=== PATIENT | male | born 1955 | race Caucasian/White ===

== ENCOUNTER 2019-01-06 03:38 | Observation (INO) | payer MEDICARE ==
[~2019-01-06] VITALS: Ht 175.3 cm; Wt 123.2 kg
--- NOTE | ~2019-01-06 | HEMODYNAMI ---
PATIENT:MONISHA FLOWERS MEDICAL RECORD: [id number] : 59 [address] [id number] ADMISSION DATE: 01/06/19 Generatedon:01/06/201913:47 Patient name: MONISHA FLOWERS Patient #: [id number] SSN: : 1955 Date of study: 01/06/2019 Page: Of Hemodynamic Procedure Report Patient Data Patient Demographics Procedure consent was obtained First Name: MONISHA Gender: Male Last Name: LIONEL : 1955 Patient #: [id number] Age: 63 year(s) Race: Unknown Additional ID: [id number] Contact details Address: [address] State: [place] City: [place] Zip code: [address] Past Medical History Allergies: No known allergies Admission Admission Data Admission Date: 01/06/2019 Admission Time: 5:10 Room #: 2122 Weight (lbs.): 271.17 Weight (kg.): 123 Lab Results Lab Result Date: 01/06/2019 Lab Result Time: 5:30 Biochemistry Name Units Result Min Max BUN mg/dl 24 --(----)-* 7 18 Creatinine mg/dl 1.1 --(--*-)-- 0.6 1.3 CBC Name Units Result Min Max Hematocrit % 41.2 -*(----)-- 42 54 Hemoglobin g/dl 13.5 --(*---)-- 13.5 17.5 Procedure Procedure Types Cath Procedure Diagnostic Procedure LHC LHC w/Coronaries Procedure Description Procedure Date Procedure Date: 01/06/2019 Procedure Start Time: 13:34 Procedure End Time: 13:46 Procedure Staff Name Function Be Marquez MD Performing Physician Rene Ghotra RT Monitor José Lowry RN Nurse Bijal Seymour RT Scrub Procedure Data Cath Procedure Fluoroscopy Diagnostic fluoroscopy Total fluoroscopy Time: 2.6 time: 2.6 min min Diagnostic fluoroscopy Total fluoroscopy dose: 665 dose: 665 mGy mGy Contrast Material Contrast Material Type Amount (ml) Isovue 300 62 Entry Location Entry Primary Successful Side Size Upsize Upsize Entry Closure Slater ccessful Closure Location (Fr) 1 (Fr) 2 (Fr) Remarks Device Remarks Radial Right 6 Fr Manual artery Short Compression Estimated blood loss: 5 ml Diagnostic catheters Device Type Used For End Catheter Placement DIAGNOSTIC Priddy 110cm 5 Procedure Fr catheter ([id number]) Procedure Complications No complications Procedure Medications Medication Administration Route Dosage 0.9% NaCl I.V. 100 ml/hr Oxygen etCO2 Nasal cannula 2 l/min Heparin Flush Bag added to field 2 bags (1000units/500ml NS) Lidocaine 2% 20 Radial Cocktail added to field 1 syringe (Verapamil 2mg/Nitro 400mcg/Heparin 1500units) Versed I.V. 2 mg Fentanyl I.V. 100 mcg Radial Cocktail I.A. 1 syringe (Verapamil 2mg/Nitro 400mcg/Heparin 1500units) Hemodynamics Rest HGB: 13.5 (g/dl) Heart Rate: 65 (bpm) Pressure Samples Time Site Value (mmHg) Purpose Heart Use Rate(bpm) 13:41 LV 155/3,21 EDP 81 Gradients Valve Time Site Site Mean SEP/DFP Peak To Heart Use 1 2 (mmHg) (sec/min) Peak Rate (mmHg) (bpm) Aortic 13:42 LV AO 83 Snapshots Pre Cath Intra NCS Post Cath Vital Signs Time Heart Resp SPO2 etCO2 NIBP (mmHg) Rhythm Pain Sedation Rate (ipm) (%) (mmHg) Status Level (bpm) 13:25:01 66 13 100 33.6 156/81(126) NSR 0 (11) 10(A) , No pain 13:29:31 66 15 100 31.3 166/87(129) NSR 0 (11) 10(A) , No pain 13:33:55 65 13 100 34.3 151/88(111) NSR 0 (11) 10(A) , No pain 13:38:19 77 13 98 0 151/81(111) NSR 0 (11) 10(A) , No pain 13:42:48 84 13 97 32.1 145/82(125) NSR 0 (11) 10(A) , No pain Medications Time Medication Route Dose Verified Delivered Reason Notes Effectiveness by by 13:27:41 0.9% NaCl I.V. 100 José José Per ml/hr Alen Lowry physician RN RN 13:27:48 Oxygen etCO2 2 l/min José José for low 02 Nasal Lorigan Alen sats cannula RN RN 13:27:58 Heparin Flush added 2 bags José José used for Bag to Lorigan Lorigan procedure (1000units/500ml field RN RN NS) 13:28:07 Lidocaine 2% 20ml José José for local vial Lorigan Alen anesthetic RN RN 13:28:17 Radial Cocktail added 1 José José used for (Verapamil to syringe Lorigan Lorigan procedure 2mg/Nitro field RN RN 400mcg/Heparin 1500units) 13:32:40 Versed I.V. 2 mg José José for sedation Alen Lowry RN RN 13:32:49 Fentanyl I.V. 100 mcg José José for sedation Alen Lowry RN RN 13:36:45 Radial Cocktail I.A. 1 José Be for (Verapamil syringe Lorigan Alma vasodilation 2mg/Nitro RN 400mcg/Heparin 1500units) Procedure Log Time Note 12:59:59 Time tracking: Call back (After hours or weekends) 13:00:01 José Lowry RN sent for patient. Start room use. 13:00:08 Plan of Care:Hemodynamics will remain stable., Cardiac rhythm will remain stable., Comfort level will be maintained., Respiratory function will remain adequate., Patient/ family verbilizes understanding of procedure., Procedure tolerated without complication., Recovers from procedure without complications.. 13:17:40 Patient received from Med II to CCL 1 Alert and oriented. Tansferred to table in Supine position. 13:17:48 Warm blankets applied, and scooter hugger turned on for patient comfort. 13:17:49 Correct patient and procedure confirmed by team. 13:17:50 Signed procedure consent form obtained from patient. 13:17:51 ECG and BP/O2 sat monitors applied to patient. 13:23:38 Vital chart was started 13:26:28 Baseline sample Acquired. 13:26:30 Rhythm: sinus rhythm 13:26:31 Full Disclosure recording started 13:26:43 H&P Date Dictated: 01/06/2019 Within 30 days and on chart.. 13:26:44 Pre-procedure instructions explained to patient. 13:26:45 Pre-op teaching completed and patient verbalized understanding. 13:26:46 Family in patients room. 13:26:48 Patient NPO since Midnight. 13:26:53 Patient allergic to No known allergies 13:26:55 Is the patient allergic to Iodine/contrast media? No. 13:26:56 Is patient on blood thinner?Yes 13:26:58 ACC The patient was administered the following blood thiners within the last 24 hours: ACCPlavix 13:26:59 Patient diabetic? Yes. 13:27:00 If diabetic: On Metformin? No 13:27:03 Previous problem with sedation/anesthesia? No ? 13:27:03 Snore? Yes 13:27:04 Sleep apnea? Yes 13:27:05 Deviated septum? No 13:27:05 Opens mouth fully? Yes 13:27:06 Sticks out tongue? Yes 13:27:07 Airway obstruction? No ? 13:27:09 Dentures? No ? 13:27:11 Pre procedure: right dorsailis pedis pulse 2+ Normal; easily identifiable; not easily obliterated 13:27:12 Modified Greg's test Ulnar < 7 seconds 13:27:14 Patient pain scale 0/10 ?. 13:27:18 IV patent on arrival in right hand, left hand with 0.9% NaCl at [facility]. 13:27:20 Lab results completed and on chart. 13:27:22 Right Radial & Right Groin area was prepped with chlora-prep and draped in sterile fashion 13:27:23 Alarms reviewed by R. N. 13:27:23 Sharps counted by scrub and verified by R.N. 13:27:25 Use device set Radial Dx or PCI 13:27:26 ACIST Syringe (45902) opened to sterile field. 13:27:27 Medline Cath Pack ([id number]) opened to sterile field. 13:27:27 Bag Decanter () opened to sterile field. 13:27:28 ACIST Hand Control (94788) opened to sterile field. 13:27:28 ACIST Manifold (11455) opened to sterile field. 13:27:29 Tegaderm 4 x 4 (1626W) opened to sterile field. 13:27:29 MBrace Wrist Support ([id number]) opened to sterile field. 13:27:30 SHEATH 6FR Slender (17-6698) opened to sterile field. 13:27:31 DIAGNOSTIC WIRE .035 260cm J wire (666047) opened to sterile field. 13:27:36 Patient Weight : 271.17 lbs 13:27:41 0.9% NaCl 100 ml/hr I.V. was administered by José Lowry RN; Per physician; 13:27:48 Oxygen 2 l/min etCO2 Nasal cannula was administered by José Lowry RN; for low 02 sats; 13:27:58 Heparin Flush Bag (1000units/500ml NS) 2 bags added to field was administered by José Lowry RN; used for procedure; 13:28:07 Lidocaine 2% 20ml vial was administered by José Lowry RN; for local anesthetic; 13:28:17 Radial Cocktail (Verapamil 2mg/Nitro 400mcg/Heparin 1500units) 1 syringe added to field was administered by José Lowry RN; used for procedure; 13::30 Physician arrived 13::31 --------ALL STOP TIME OUT------ 13:31:31 Final Timeout: patient, procedure, and site verified with staff and physician. All members of the team are in agreement. 13:31:33 Right Radial & Right Groin site verified by team. 13:31:35 Maximum allowable Isovue 300 dose 300ml. Physician notified. (300ml for normal creatinines. For patients with creatinine of 1.7 or higher multiply weight(kg) x 5 divided by creatinine.) 13:31:39 Fire Safety Assessment: A--An alcohol-based skin anteseptic being used preoperatively., C--Open oxygen or nitrous oxide is being used., D--An ESU, laser, or fiber-optic light is being used. 13:31:41 Physical assessment completed. ASA score P 2 - A patient with mild systemic disease as per Be Marquez MD. 13:31:43 Sedation plan: IV Moderate Sedation Medication:Versed, Fentanyl 13:32:10 Lab Result : Creatinine 1.1 mg/dl 13:32:10 Lab Result : BUN 24 mg/dl 13:32:10 Lab Result : Hematocrit 41.2 % 13:32:10 Lab Result : Hemoglobin 13.5 g/dl 13:32:40 Versed 2 mg I.V. was administered by José Lowry RN; for sedation; 13:32:49 Fentanyl 100 mcg I.V. was administered by José Lowry RN; for sedation; 13:34:52 Procedure started. 13:34:55 Local anesthetic to right radial artery with Lidocaine 2% by Be Marquez MD.INITIAL ACCESS ONLY 13:35:02 A 6 Fr Short sheath was inserted into the Right Radial artery 13:36:39 Zero performed for pressure channel P1 13:36:45 Radial Cocktail (Verapamil 2mg/Nitro 400mcg/Heparin 1500units) 1 syringe I.A. was administered by Be Mraquez MD; for vasodilation; 13:36:56 A DIAGNOSTIC Priddy 110cm 5 Fr catheter ([id number]) was advanced over the wire and used for Procedure. 13:38:22 Zero performed for pressure channel P1 13:40:41 RCA angiography performed. 13:40:44 LCA angiography performed. 13:41:55 LV hemodynamics recorded. 13:41:56 LV gram done using RUIZ 13:41:59 Injector settings: Ml/sec: 5, Volume: 15, 13:42:11 EF : 55 % 13:42:16 Catheter removed. 13:42:21 TR BAND Large ([id number]) opened to sterile field. 13:42:27 Sheath removed intact; hemostasis achieved with Manual Compression to the Right Radial artery. 13:43:30 Procedure ended.(Physican Out) 13:45:32 Fluoroscopy time 02.60 minutes. 13:45:37 Fluoroscopy dose: 665 mGy 13:45:37 Flurop Dose total: 665 13:45:42 Contrast amount:Isovue 300 62ml. 13:45:44 Sharps counted by scrub and verified by R.N. 13:45:49 TR band inflated with 10cc of air. 13:45:50 Insertion/operative site no bleeding no hematoma. 13:45:59 Post right radial artery:stable, soft, clean and dry 13:46:00 Post Procedure Pulses reassessed and unchanged 13:46:02 Post-procedure physical assessment completed. ASA score P 2 - A patient with mild systemic disease as per Be Marquez MD. 13:46:04 Post procedure rhythm: unchanged. 13:46:06 Estimated blood loss: 5 ml 13:46:06 Post procedure instruction explained to patient.Patient verbalizes understanding. 13:46:07 Patient needs reinforcement of post procedure teaching. 13:46:25 Procedure and supply charges have been captured, reviewed, submitted and are correct. 13:46:27 Procedure Complication : No complications 13:46:28 Vital chart was stopped 13:46:29 See physician's report for complete and final results. 13:46:32 Report given to PCU. 13:46:35 Patient transfered to PCU with Stretcher. 13:46:36 Procedure ended. 13:46:36 Full Disclosure recording stopped 13:46:40 End room use (Document Last) Device Usage Item Name Manufacture Quantity Catalog Hospital Part Current Minimal Lot# / Number Charge Number Stock Stock Serial# Code ACIST Acist 1 97763 592667 257964 066621 20 Syringe Medical (93669) Systems Inc Medline Medline 1 [id number] 835529 02964 459569 5 Cath Pack ([id number]) Bag Microtek 1 726063 33192 202230 5 Decanter Medical Inc. () ACIST Hand Acist 1 75594 337145 472644 631181 5 Control Medical (94641) Systems Inc ACIST Acist 1 25049 637495 723949 146431 5 Manifold Medical (41833) Systems Inc Tegaderm 4 3M 1 1626W 904708 292002 813024 5 x 4 (1626W) MBrace Advanced 1 140-0250-00 089624 65398 334066 5 Wrist Vascular Support Dynamics ([id number]) SHEATH 6FR Terumo 1 [id number] 142959 835192 363192 5 Slender (80-1060) DIAGNOSTIC [place] 1 005896 460571 763222 121065 30 WIRE .035 260cm J wire (113083) DIAGNOSTIC Terumo 1 40-4980 179680 639581 867344 5 Priddy 110cm 5 Fr catheter (855933) TR BAND Terumo 1 [id number] 722783 535264 074190 40 Large ([id number]) Signature Audit [place] Stage Time Signature Unsigned Intra-Procedure 01/06/2019 Rene Ghotra 1:46:57 PM RT(R) Signatures Monitor : Rene Ghotra RT Signature : Date : Time : [place] [id number] [facility] [address]
--- NOTE | 2019-01-06 03:50 | NUR ---
PT HAS NITRO OINTMENT TO CHEST THAT WAS APPLIED BY ALISA BENJAMIN.
[2019-01-06] MEDS ORDERED: PENTOXIFYLLINE (04:20)
[2019-01-06] MEDS ORDERED: CELEBREX200 MG PO (04:20)
[2019-01-06 04:21] LABS: CREATINE KINASE 132 UL (21-232); THYROID STIMULATING HORMONE 1.51 uIU/mL (0.36-3.74); TROPONIN-I < 0.017 ng/mL (0.000-0.060)
[2019-01-06] MEDS ORDERED: GLIPIZIDE10 MG PO (04:21)
[2019-01-06] MEDS ORDERED: NEURONTIN800 MG PO (04:21)
[2019-01-06] MEDS ORDERED: ZESTRIL10 MG PO (04:21)
[2019-01-06] MEDS ORDERED: LASIX40 MG PO (04:22)
[2019-01-06] MEDS ORDERED: CRESTOR20 MG PO (04:22)
[2019-01-06] MEDS ORDERED: PIOGLITAZONE15 MG PO (04:22)
[2019-01-06] MEDS ORDERED: ZYRTEC10 MG PO (04:22)
[2019-01-06] MEDS ORDERED: OMEPRAZOLE20 M1 PO (04:23)
[2019-01-06] MEDS ORDERED: PLAVIX75 MG PO (04:23)
[2019-01-06] MEDS ORDERED: BACLOFEN10 MG PO (04:23)
[2019-01-06] MEDS ORDERED: KLOR-CON 1010 MEQ PO (04:23)
[2019-01-06] MEDS ORDERED: TYLENOL #4 W/CO1 TAB PO (04:24)
[2019-01-06 04:59] VITALS: BP 130/79
--- NOTE | 2019-01-06 05:44 | NUR ---
PT ARRIVED VIA W/C FROM ER. NO DISTRESS NOTED.
[2019-01-06 06:04] VITALS: BP 123/64; Ht 175.3 cm; Wt 123.2 kg
--- NOTE | 2019-01-06 06:25 | NUR ---
ADMISSION ASSESSMENT, HISTORY AND HOME MED LIST COMPLETED. SR PER CM HR 66. VSS. PT DENIES ANY DISCOMFORT. EXPLAINED RATIONALE FOR NPO UNTIL SEEN BY CARDIOLOGY. STATED UNDERSTANDING. CALL LIGHT WITHIN REACH.
[2019-01-06 10:05] LABS: BASOPHILS 0.2 % (0-2); EOSINOPHILS 3.2 % (0-7); HEMATOCRIT 41.2 % (42.0-54.0); HEMOGLOBIN 13.5 g/dL (13.5-17.5); IMMATURE GRANULOCYTES 0.1 % (0-5); LYMPHOCYTES 30.1 % (15-50); MCH 30.9 pg (26.0-34.0); MCHC 32.8 g/dL (31.0-37.0); MCV 94.3 fL (80.0-100.0); NEUTROPHILS 58.4 % (40-80); PLATELET COUNT 239 10x3/uL (130-400); RBC 4.37 10x6/uL (4.20-6.10); RDW 14.3 % (11.5-14.5); WBC 8.2 10x3/uL (4.8-10.8)
[2019-01-06 10:06] LABS: ANION GAP 15.1 mmol/L (8-16); CALCIUM 8.9 mg/dL (8.5-10.1); CARBON DIOXIDE 25.5 mmol/L (21.0-32.0); CREATININE - SERUM 1.1 mg/dL (0.6-1.3); POTASSIUM - SERUM 4.6 mmol/L (3.5-5.1)
[2019-01-06 11:53] VITALS: BP 139/68
--- NOTE | 2019-01-06 12:30 | NUR ---
ALERT AND ORIENTED X4. RESTING IN BED. CONSENTS FOR SURGICAL SPECIALIST SIGNED ON CHART. PREOP FOR SURGICAL SPECIALIST COMPLETE. TAKEN TO SURGICAL SPECIALIST VIA BED. CONTINUE PLAN OF CARE AND SAFETY PRECAUTIONS.
--- NOTE | 2019-01-06 14:01 | NUR ---
RETURN TO ROOM VIA BED FROM DECK ENGINEER. SEDATED. AROUSES TO VOICE. SPOUSE AT BEDSIDE. RT WRIST TR BAND CLEAN DRY INTACT. FREE FROM BLEEDING. FREE FROM HEMATOMA. BP-128/79, HR-66 SINUS RHYTHM, R-16, O2 SAT-96% RA. CONTINUE PLAN OF CARE AND SAFETY PRECAUTIONS.
[2019-01-06 15:42] VITALS: BP 138/70
--- NOTE | 2019-01-06 17:12 | NUR ---
1615-ALERT AND ORIENTED X4. BEGIN DEFLATING TR BAND BULB 2 ML OF AIR AT A TIME EVERY 20 MINUTES. CURRENTLY 6mL OF AIR DEFLATED. FREE FROM BLEEDING. FREE FROM HEMATOMA. AMBULATES TO RESTROOM. GAIT STEADY. SPOUSE AT BEDSIDE. DENIES ANY NEEDS AT THIS TIME. CONTINUE PLAN OF CARE AND SAFETY PRECAUTIONS.
--- NOTE | 2019-01-06 18:18 | NUR ---
ALERT AND ORIENTED X4. RESTING IN BED. TR BAND DEFLATED 8mL OF AIR. BEGINS BLEEDING. INFLATE TR BAND 1ML. TR BAND 7ML TOTAL DEFLATED REMAINS FREE FROM BLEEDING. CONTINUE PLAN OF CARE AND SAFETY PRECAUTIONS.
[2019-01-06 20:07] VITALS: BP 144/64
--- NOTE | 2019-01-06 20:12 | NUR ---
INITIAL ROUNDS COMPLETED AT 1910 HRS. PT DEIED ANY DISCOMFORT. TR BAND TO R WRIST CLEAN, DRY AND INTACT. 2CC REMOVED AT THAT TIME. ASSESSMENT COMPLETED AT 1930 HRS. VSS. SR PER CM HR 86. IV TO L WRIST AND R HAND DC'D WITH CATHETER INTACT. LUNGS CTA. MARTÍNEZ. STRONG PERIPHERAL PULSES. LAST CC OF TR BAND REMOVED. NO BLEEDING AFTER 15 MINUTES AND BAND REMOVED. 2X2 AND TEGADERM APPLIED. WRIST SPLINT REAPPLIED. INFORMED PT TO LEAVE SPLINT ON UNTIL AM. PT STATED UNDERSTANDING. RECHECK SITE AT 2014 CLEAN DRY AND INTACT. CALL LIGHT WITHIN REACH.
--- NOTE | 2019-01-06 20:42 | NUR ---
NO BLEEDING AT 2030 HRS. DC INSTRUCTIONS GIVEN AND EXPLAINED TO PT. TO POV VIA W/C.
--- NOTE | 2019-01-07 09:16 | MORECARE ---
CASE MANAGEMENT DISCHARGE SUMMARY PATIENT: MONISHA FLOWERS UNIT: [id number] ADM DATE: 01/06/19 AGE: 63 : [birth year] SEX: M ROOM/BED: D.2122 AUTHOR: MADHAV DRUMMOND PHYSICIAN: REFERRING PHYSICIAN: RAMON KOHLI MD DATE OF SERVICE: 01/07/19 Discharge Plan Patient Name: MONISHA FLOWERS Facility: [facility]:[place] : 1955 Planned Disposition: Home Anticipated Discharge Date: 01/06/19 Discharge Date: 01/06/2019 Expected LOS: 1 Initial Reviewer: [email or web address] Initial Review Date: 01/07/2019 Generated: 01/07/19 10:15 am Patient Name: MONISHA FLOWERS Page 80294 at 0916 All edits/amendments must be made on the electronic document DICTATION DATE: 01/07/19914 ENGLISH PROFESSOR: MAT 01/07/19914 RPT#: [id number] DC DATE:01/06/19 STATUS: DIS IN [facility] [address] [place] [address] END OF REPORT
--- NOTE | 2019-01-07 10:07 | CN ---
PATIENT NAME:MONISHA FLOWERS MEDICAL RECORD: [id number] : 59 LOCATION:. D.2122 ADMIT DATE: 01/06/19 ACCOUNT: [id number] CONSULTING PHYSICIAN: YUMI FINE MD REFERRING PHYSICIAN: RAMON KOHLI MD DATE OF CONSULTATION: 01/06/2019 HISTORY OF PRESENT ILLNESS: A 63-year-old gentleman with no known coronary artery disease, history of hypertension, hyperlipidemia, and diabetes mellitus with onset of chest tightness and pressure yesterday. It occurred while working in the yard, progressed to rest symptomology, wax and wane in course. Transferred from [place] for further evaluation. Strong family history of coronary artery disease and multiple risk factors. PAST MEDICAL HISTORY: Includes; 1. History of hypertension. 2. Hyperlipidemia. 3. Diabetes mellitus. ALLERGIES: None known. MEDICATIONS: Include Glucotrol 10 b.i.d., pioglitazone 30 mg p.o. daily, Lasix 20 daily, Neurontin 800 b.i.d., Celebrex 200 b.i.d., Crestor 20 daily, lisinopril 10 daily, and Plavix 75 daily. SOCIAL HISTORY: He is nonsmoker and nondrinker. He takes care of all his ADLs. No illicit drug use. REVIEW OF SYSTEMS: The patient reports easy bruising but reports no swollen glands. The patient reports no fever, no night sweats, no significant weight gain, no significant weight loss. No significant exercise tolerance. The patient reports no dry eyes, no irritation, no vision change. Patient reports no difficulty hearing and no ear pain. Patient reports no frequent nose bleeds or nose and sinus problems. Patient reports on arm pain on exertion. No shortness of breath while lying down. No history of heart murmur. Patient reports no cough, no wheezing or coughing up blood. Patient reports no abdominal pain, no vomiting. Normal appetite. No diarrhea and not vomiting blood. No nausea and no constipation. Patient reports no incontinence. No difficulty urinating. No hematuria. No increased frequency. Patient reports no muscle aches. No weakness, no arthralgias, no back pain. No swelling of the extremities. Patient reports no abnormal mole, no jaundice, no rashes. Reports no loss of consciousness. No weakness and no numbness. No seizures, dizziness, or headaches. The patient reports no depression, no sleep disturbance, feeling safe in a relationship and no alcohol abuse. Patient reports on fatigue. Reports no runny nose or sinus pressure. No itching, no hives, and no frequent sneezing. PHYSICAL EXAMINATION: GENERAL: Pleasant gentleman, in no acute distress. VITAL SIGNS: Dolph body weight. Blood pressure 123/64. Pulse 66 and regular. HEENT: Normocephalic and atraumatic. NECK: No bruits noted. HEART: Regular. LUNGS: [place] clear. ABDOMEN: Soft and nontender. CONSULT REPORT [id number] MONISHA FLOWERS EXTREMITIES: Pulses 2+ with no edema. DIAGNOSTIC DATA: ECG shows nonspecific ST-T changes. IMPRESSION: Unstable angina, acute coronary syndrome. PLAN: Diagnostic angiography, intervention based on above. TRANSINT:[id number] Voice Confirmation ID: [id number] DOCUMENT ID: [id number] YUMI FINE MD at 1007 CC: [id number] DICTATION DATE: 01/06/19854 STORE ADMINISTRATOR: 01/06/19 1616 DIS IN 01/06/19 [facility] [address] [place] [address]
--- NOTE | 2019-01-07 10:07 | EC ---
PATIENT:MONISHA FLOWERS DATE OF SERVICE: 01/06/19 SEX: M MEDICAL RECORD: [id number] DATE OF : 59 LOCATION:D.M2 D.212 AGE OF PATIENT: 63 ADMISSION DATE: 01/06/19 REFERRING PHYSICIAN: INTERPRETING PHYSICIAN: YUMI FINE MD ECHOCARDIOGRAM REPORT ECHO CHARGES 4 ECHO COMPLETE Date: 01/06/19 CLINICAL DIAGNOSIS: RECINOS/ ASSESS FOR CARDIOMYOPATHY ECHOCARDIOGRAPHIC MEASUREMENTS (adult normal given) AC root (d.<3.7cm) 4.0 cm LV Septum d (<1.2 cm> 1.1 cm Valve Excursion 1.9 cm LV Septum (systole) 1.4 cm Left Atria (s.<4.0cm> 4.0 cm LVPW d(<1.2cm) 1.5 cm RV (d.<2.3cm) 4.3 cm LVPW (sytole) 1.9 cm LV diastole(<5.6CM) 6.3 cm MV E-F(>70mm/sec) cm LV systole 4.9 cm LVOT Diameter 2.2 cm MV exc.(>10mm) 1.4 cm Est.ejection fraction (50-75%) % DOPPLER: LVIT cm/sec A 103 cm/sec E 72.0 cm/sec LA cm/sec RVSP 18 mmHg LVOT 128 cm/sec AOP1/2T m/s Asc. Ao 145 cm/sec RVOT 96 cm/sec RA cm/sec PA 121 cm/sec AV Gradient Peak 8.38 mmHg AV Mean 5.12 mmHg AV Area 2.9 cm MV Gradient Peak 6.54 mmHg MV Mean 3.09 mmHg MV Area cm COMMENTS: Folder Tier: Salvador PASCAL Egg Breaker: 3 Dr. Ahumada TAPE# PACS Pericardial Effusion N DATE OF SERVICE: 01/06/2019 Adequate 2-D, color-flow and spectral Doppler, and M-mode. LVH is present. LV internal dimensions are normal. Wall motion is normal. EF is greater than or equal to 55%. Aortic valve sclerosis without stenosis by Doppler interrogation. Left atrium is at upper limits of normal at 4.0 cm. Mitral valve shows no prolapse. Trace MR. Right-sided chambers are grossly normal. Trace TR. ECHOCARDIOGRAM REPORT [id number] MONISHA FLOWERS TRANSINT:[id number] Voice Confirmation ID: [id number] DOCUMENT ID: [id number] YUMI FINE MD at [facility] CC: [id number] DICTATION DATE: 01/06/19 1309 ROLLER PRINTING SUPERVISOR: 01/06/19 1843 DIS IN 01/06/19 [facility] [address] [place] [id number]
--- NOTE | 2019-01-07 10:07 | OP ---
PATIENT NAME: MOINSHA FLOWERS MEDICAL RECORD: [id number] :59 LOCATION:D.M2 D.2122 ADMISSION DATE:01/06/19 SURGEON: YUMI FINE MD DATE OF OPERATION: 01/06/2019 PROCEDURE: Left heart catheterization, selective coronary angiography, right radial approach. CATHETERS: [place] catheter, radial sheath. The procedure was well tolerated. The patient was returned to the heredia. Sheath was removed. TR band was placed. FINDINGS: Left ventriculography in 30-degree RUIZ view: Normal wall motion and normal systolic function. CORONARY ANATOMY: LEFT MAIN: Left main is free of disease. LAD: Free of disease in the diagonal system. CIRCUMFLEX: Free of disease in the marginal system. RIGHT CORONARY ARTERY: Dominant artery, gives rise to PDA, free of disease. IMPRESSION: Normal LV systolic function. Normal coronary anatomy. TRANSINT:[id number] Voice Confirmation ID: [id number] DOCUMENT ID: [id number] YUMI FINE MD at [facility] CC: [id number] DICTATION DATE: 01/06/19 1349 BOTTLE BLOWING MACHINE TENDER: 01/06/19 1908 DIS IN 01/06/19 [facility] [address] [place] [address]
== END 2019-01-06 20:43 | disposition home or self-care (01) ==
LOC: D.ER 03:38 → D.M2 05:10 → OBSVTIME 05:10 → D.M2 20:43
PROVIDERS: Emergency Medicine; Internal Medicine Interventional Cardiology; ADMIT Emergency Medicine; ATTEND Emergency Medicine
DX: I20.0 Unstable angina (principal); I11.0 Hypertensive heart disease with heart failure; I50.9 Heart failure, unspecified; E11.65 Type 2 diabetes mellitus with hyperglycemia; K21.9 Gastro-esophageal reflux disease without esophagitis; E78.5 Hyperlipidemia, unspecified; I24.9 Acute ischemic heart disease, unspecified